=== PATIENT | male | born 1965 | race Caucasian/White ===

== ENCOUNTER 2020-11-23 21:40 | Emergency (ER) | payer OTHER ==
[2020-11-23 21:45] VITALS: BP 152/74
--- NOTE | 2020-11-23 22:09 | ED General ---
General Chief Complaint: General Problems/Pain Stated Complaint: LETHARGY Nursing Triage Note: Patient states that he came to the ER because his made him. He states that his has noticed that he has dropped things frequently and that he reaches for things and is unable to grab them. Patient states that he feels completely fine and normal. Nursing Sepsis Screen: No Definite Risk Source of Information: Patient Exam Limitations: No Limitations History of Present Illness Date Seen by Provider: Nov 23, 2020 Time Seen by Provider: 21:45 Initial Comments 55-year-old male presents to the ER stating "my made me come in, I feel fine". Patient admits her concern is that occasionally he drops things or reaches for something and misses it. Is occasionally tried to set something down and missed the table or counter with the item. This does not occur daily, is not occurring currently. He admits it has happened more in the last 2 weeks, although not persistently or consistently. Denies any difficulty with walking, although occasionally he is off balance when he bends over and stands up. He admits to increased stress at work over the past couple weeks. He does have a history of sleep apnea and he does not use his CPAP machine because he does not like how it feels on his face. Admits to sleeping poorly and having excessive snoring and waking himself up often. He also admits feeling tired throughout most days. He denies any drug or alcohol use, abuse or addiction. He denies chest pain, shortness of air, weight loss, syncope, recent illness fever or chills. Otherwise states he feels just fine. Allergies and Home Medications Allergies Coded Allergies: No Known Drug Allergies (Unverified , 11/23/20) Patient Home Medication List Home Medication List Reviewed: Yes Review of Systems Review of Systems Constitutional: see HPI; No fever, No malaise, No weakness Respiratory: no symptoms reported; No cough, No short of breath Cardiovascular: no symptoms reported; No chest pain, No edema, No palpitations, No syncope Gastrointestinal: No abdominal pain, No loss of appetite, No nausea, No vomiting Musculoskeletal: No back pain, No joint pain, No muscle pain, No muscle stiffness, No muscle weakness, No neck pain Skin: No change in color, No lesions, No rash Psychiatric/Neurological: See HPI; Denies Anxiety, Denies Depressed, Denies Emotional Problems, Denies Headache, Denies Numbness, Denies Paresthesia, Denies Pre-Existing Deficit, Denies Seizure, Denies Tingling, Denies Tremors, Denies Weakness; Other (occasional incoordination, not currently. comes and goes) Past Wtaxncs-Jkwqmy-Erqlhp Hx Past Med/Social Hx: Reviewed Nursing Past Med/Soc Hx Patient Social History Alcohol Use: Denies Use Smoking Status: Current Everyday Smoker Type Used: Cigarettes Recent Infectious Disease Expo: No Past Medical History Surgeries: No Respiratory: No Cardiac: Yes Deep Vein Thrombosis Neurological: No Genitourinary: No Gastrointestinal: No Musculoskeletal: No Endocrine: No HEENT: No Cancer: No Psychosocial: No Integumentary: No Physical Exam Vital Signs Vital Signs - First Documented 11/23/20 21:45 Temp 36.8 Pulse 84 Resp 18 B/P (MAP) 152/74 (100) Pulse Ox 98 O2 Delivery Room Air Capillary Refill : Less Than 3 Seconds Height, Weight, BMI Height: '" Weight: lbs. oz. 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; No Abnormal Cerebellar Tests, No Abnormal Gait, No Aphasia, No Depressed Affect, No Disoriented, No EOM Palsy, No Facial Droop, No Motor Weakness, No Sensory Deficit Skin: Normal Color, Warm/Dry Progress/Results/Core Measures Suspected Sepsis Recent Fever Within 48 Hours: No Infection Criteria Present: None New/Unexplained Altered Menta: No Sepsis Screen: No Definite Risk SIRS Temperature: Pulse: 84 Respiratory Rate: 18 Blood Pressure 152 /74 Mean: 100 Results/Orders Vital Signs/I&O 11/23/20 21:45 Temp 36.8 Pulse 84 Resp 18 B/P (MAP) 152/74 (100) Pulse Ox 98 O2 Delivery Room Air Capillary Refill : Less Than 3 Seconds Blood Pressure Mean: 100 Progress Note : Progress Note Patient with rather benign complaint and presentation stating he feels fine. Normal neurologic exam without any deficit or abnormal movement or coordination. Long discussion over possible etiology of the symptoms and discovered a few items that may be contributing to his occasional abnormal movement or depth perception. Patient does admit to sleep apnea, getting poor sleep for several years and not using his CPAP due to a poor fitting mask that he does not tolerate. Also admits to increased stress at work at a place where has been working for 18 years. Also admits there are days where he does not eat all day and he could have low blood sugar as well. Encourage patient to see his primary care provider to discuss reevaluation for sleep apnea and with focus of getting a better fitting mask. Discussed the benefit of sleep and the risk of continued likely hypoxia at night without his CPAP which would affect his daytime performance and this might be a bit possible etiology of his condition currently. He agrees and understood. Also advised not fasting throughout days that he is working as a low blood sugar could also cause abnormal movement, coordination, or seizure-like activity if significantly low. Patient also agrees and understands this. Strongly encouraged follow-up with his primary care provider for complete physical and to discuss these matters. Departure Impression Primary Impression: Fatigue Qualified Codes: R53.83 - Other fatigue Additional Impression: Sleep apnea in adult Disposition: 01 HOME, SELF-CARE Condition: Stable Departure-Patient Inst. Decision time for Depature: 22:06 Referrals: NO,LOCAL PHYSICIAN (PCP/Family) Primary Care Physician Patient Instructions: Obstructive Sleep Apnea, Adult (DC) Add. Discharge Instructions: Follow up with Dr Calderón in 1 week for a complete physical and to discuss options for a re-evaluation for a better mask for your CPAP. Understand that the following may make you have some coordination abnormalities: fatigue from lack of sleep, stress, low blood sugar. Return to the ER if your symptoms get worse and you are unable to see Dr Calderón. All discharge instructions reviewed with patient and/or family. Voiced understanding. ADRIANO TABOR DO Nov 23, 2020 22:09
== END 2020-11-23 22:11 | disposition home or self-care (01) ==
LOC: EDUNIT# 21:40 → ER FS 21:45
DX: R53.83 Other fatigue (principal); G47.33 Obstructive sleep apnea (adult) (pediatric); I10 Essential (primary) hypertension; F17.210 Nicotine dependence, cigarettes, uncomplicated
CPT/HCPCS: 99281

== ENCOUNTER 2020-11-24 10:41 | Inpatient (IN) | payer OTHER ==
[~2020-11-24] VITALS: Ht 195.5 cm; Wt 134.5 kg
[2020-11-24] VITALS (11 sets, daily range): BP systolic 102–130; BP diastolic 53–98
--- NOTE | 2020-11-24 11:01 | ED Neurological Problem ---
General Chief Complaint: Neurological Problems Stated Complaint: L SIDE WEAKNESS Source: patient, family Exam Limitations: no limitations History of Present Illness Date Seen by Provider: Nov 24, 2020 Time Seen by Provider: 10:45 Initial Comments Patient is a 55-year-old male who presents to the emergency department today with a chief complaint of left upper extremity and left lower extremity weakness. His is present at the bedside and provides further history. She states he had onset of symptoms last night around 8 PM. She states he kept dropping things from his left hand and has had some coordination and balance issues over the course of the last 12 hours. She states he had a little bit of slurred speech. She states he just was not acting like himself. He went to the emergency department at [facility] last night and was seen did not have a CAT scan at that visit. They told him that he was having issues with sleep apnea. states that he went home and this morning went to the ground secondary to leg weakness and was not able to get himself back up on under his own power. He denies any recent illnesses such as fevers, chills, cough or congestion. No nausea vomiting or diarrhea. No vision changes that he is aware of. He denies headache. No issues with continence. Patient does not have any significant past medical history. He is a smoker smokes slightly less than a pack a day. All other review of systems reviewed and negative except as stated above. Timing/Duration: other (12 hours) Severity: moderate Associated Symptoms: No confusion, No loss of consciousness, No nausea/vomiting, No paresthesia; slurred speech, trouble walking, weakness (Left upper extremity left lower extremity) Allergies and Home Medications Allergies Coded Allergies: No Known Drug Allergies (Unverified , 11/23/20) Patient Home Medication List Home Medication List Reviewed: Yes Review of Systems Review of Systems Constitutional: see HPI Eyes: No Symptoms Reported Ears, Nose, Mouth, Throat: no symptoms reported Respiratory: no symptoms reported Cardiovascular: no symptoms reported Gastrointestinal: no symptoms reported Genitourinary: no symptoms reported Musculoskeletal: no symptoms reported Skin: no symptoms reported Psychiatric/Neurological: Weakness (Left upper and lower extremity, trace) Past Djqzdam-Dqwofy-Vfmxcq Hx Patient Social History Alcohol Use: Denies Use Type Used: Cigarettes Past Medical History Surgeries: Yes (RIGHT 2ND FINGER) Orthopedic Respiratory: No Cardiac: Yes Deep Vein Thrombosis Neurological: No Genitourinary: No Gastrointestinal: No Musculoskeletal: No Endocrine: No HEENT: No Cancer: No Psychosocial: No Integumentary: No Physical Exam Vital Signs Vital Signs - First Documented 11/24/20 10:41 Temp 36.3 Pulse 92 Resp 18 B/P (MAP) 131/75 (93) Pulse Ox 98 Capillary Refill : Height, Weight, BMI Height: '" Weight: lbs. oz. kg; BMI Method: General Appearance: WD/WN, no apparent distress HEENT: PERRL/EOMI, normal ENT inspection Neck: full range of motion Respiratory: lungs clear, normal breath sounds, no respiratory distress, no accessory muscle use Cardiovascular: regular rate, rhythm Gastrointestinal: non tender, soft Extremities: normal range of motion, non-tender, normal inspection, no pedal edema Neurologic/Psychiatric: alert, normal mood/affect, oriented x 3 Crainal Nerves: normal hearing, normal speech, PERRL; No abnormal eye position, No abnormal gag reflex, No abnormal pupil position; facial droop (Left-sided); No tongue deviation to R, No tongue deviation to L Coordination/Gait: normal finger to nose, abnormal gait (Gait not tested) Motor/Sensory: pronator drift (L), weak motor strength LUE (4+/5), weak motor strength LLE (4+/5) Skin: normal color, warm/dry Stroke Onset of Symptoms Date of Onset of Symptoms: Nov 23, 2020 Time of Symptom Onset: 20:00 Onset of Symptoms: Yes NIH Stroke Scale Assessment Select: Initial Level of Consciousness: 0=Alert (0), Level of Consciousness- Questions: 0=Answers both month/age (0), LOC Commands: 0=Performs both tasks (0), Gaze: Normal (0), Visual Mcclellan: 1=Partial hemianopia (1), Facial Movement (Facial Paresis): 1=Minor paralysis (1), Motor Function-Arms Right: 0=No drift (0), Motor Function-Arms Left: 1=Drift (1), Motor Function-Legs Right: 0=No drift (0), Motor Function-Legs Left: 1=Drift (1), Limb Ataxia: 0=Absent (0), Sensory: 0=Normal:no loss (0), Best Language: 0=No aphasia (0), Dysarthria: 0=Normal (0), Extinction & Inattention: 1=Visual,tactile,auditory (1), Total: 5 Stroke Thrombolytic Exclusion Age 18 or Over: Yes Acute intenal hemorrhage: No History of CVA: No Uncontrolled Coagulation Defec: No Intracranial Hemorrhage: No Severe Hypertension: No GI or Bleed: No Subarachnoid Hemorrhage: No Intracranial Neoplasm/Aneurysm: No Oral Anticoagulants: No Surgery or Trauma: No Puncture of Non-Compressible V: No Recent CPR: No Diabetic Hemorrhagic Retinopat: No Organ Biopsy: No Recent Obstetric Delivery: No Glucose: Yes Significant Hepatic Dysfunctio: No NIH Stoke Scale >22: No Bacterial Endocarditis: No Pericarditis: No Improving Symptoms: No Platelets: No TPA Contraindication: Yes IV - TPa Received IV - TPa Procedure Performed?: No Progress/Results/Core Measures Results/Orders Lab Results Laboratory Tests Test 11/24/20 10:45 11/24/20 10:49 Range/Units White Blood Count 10.3 4.3-11.0 10^3/uL Red Blood Count 5.62 H 4.30-5.52 10^6/uL Hemoglobin 16.3 13.3-17.7 g/dL Hematocrit 49 40-54 % Mean Corpuscular Volume 86 80-99 fL Mean Corpuscular Hemoglobin 29 25-34 pg Mean Corpuscular Hemoglobin Concent 34 32-36 g/dL Red Cell Distribution Width 13.2 10.0-14.5 % Platelet Count 239 130-400 10^3/uL Mean Platelet Volume 10.2 9.0-12.2 fL Immature Granulocyte % (Auto) 1 % Neutrophils (%) (Auto) 69 42-75 % Lymphocytes (%) (Auto) 22 12-44 % Monocytes (%) (Auto) 8 0-12 % Eosinophils (%) (Auto) 1 0-10 % Basophils (%) (Auto) 0 0-10 % Neutrophils # (Auto) 7.1 1.8-7.8 10^3/uL Lymphocytes # (Auto) 2.2 1.0-4.0 10^3/uL Monocytes # (Auto) 0.8 0.0-1.0 10^3/uL Eosinophils # (Auto) 0.1 0.0-0.3 10^3/uL Basophils # (Auto) 0.0 0.0-0.1 10^3/uL Immature Granulocyte # (Auto) 0.1 0.0-0.1 10^3/uL Prothrombin Time 12.7 12.2-14.7 SEC INR Comment 0.9 0.8-1.4 Activated Partial Thromboplast Time 31 24-35 SEC Sodium Level 131 L 135-145 MMOL/L Potassium Level 3.8 3.6-5.0 MMOL/L Chloride Level 101 98-107 MMOL/L Carbon Dioxide Level 19 L 21-32 MMOL/L Anion Gap 11 5-14 MMOL/L Blood Urea Nitrogen 6 L 7-18 MG/DL Creatinine 0.85 0.60-1.30 MG/DL Estimat Glomerular Filtration Rate > 60 BUN/Creatinine Ratio 7 Glucose Level 414 *H 70-105 MG/DL Calcium Level 8.4 L 8.5-10.1 MG/DL Triglycerides Level 192 H <150 MG/DL Cholesterol Level 225 H < 200 MG/DL LDL Cholesterol Direct 179 H 1-129 MG/DL VLDL Cholesterol 38 5-40 MG/DL HDL Cholesterol 35 L 40-60 MG/DL Glucometer 358 H 70-110 MG/DL My Orders Orders - NAVARRO MATTA MD Ed Iv/Invasive Line Start (11/24/20 10:57) Cbc With Automated Diff (11/24/20 10:57) Basic Metabolic Panel (11/24/20 10:57) Ekg Tracing (11/24/20 10:57) Chest 1 View, Ap/Pa Only (11/24/20 10:57) Ct Head Wo (11/24/20 10:57) Protime With Inr (11/24/20 10:57) Partial Thromboplastin Time (11/24/20 10:57) Aspirin Tablet (Aspirin Tablet) (11/24/20 11:45) Ct Angio Head/Neck (11/24/20 11:33) Iohexol Injection (Omnipaque 350 Mg/Ml 1 (11/24/20 11:45) Received Contrast (Hold Metformin- Contr (11/24/20 11:45) Ns (Ivpb) (Sodium Chloride 0.9% Ivpb Bag (11/24/20 11:45) Sodium Chloride Flush (Catheter Flush Sy (11/24/20 11:45) Medications Given in ED Vital Signs/I&O 11/24/20 10:41 Temp 36.3 Pulse 92 Resp 18 B/P (MAP) 131/75 (93) Pulse Ox 98 Progress Progress Note : Time: 11:31 Progress Note Case discussed with [facility] stroke neurologist, Dr. Castillo. No candidate at this time for TPA or other intervention. He did recommend CTA of the head and neck and full-strength aspirin at this time. Initial ECG Impression Date: Nov 24, 2020 Initial ECG Impression Time: 10:52 Initial ECG Rate: 83 Initial ECG Rhythm: Normal Sinus Initial ECG Intervals: Normal Initial ECG Impression: Normal Initial ECG Comparisson: No Previous ECG Available Diagnostic Imaging Diagonstic Imaging: CT Plain Films/CT/US/NM/MRI: head Comments [facility], [place] NAME: JENS [facility] REC#: [id number] PT STATUS: REG ER : 1965 PHYSICIAN: NAVARRO MATTA MD ADMIT DATE: 11/24/20/ER Draft Date of Exam:11/24/20 CT HEAD WO Clinical indications: Patient with left-sided weakness, coordination problems since last night. Rule out stroke. Exam: Axial CT scan of the brain without IV contrast with coronal and sagittal reformatted images. Auto Exposure Controls were utilized during the CT exam to meet ALARA standards for radiation dose reduction. Comparison: None. Findings: There is questionable subtle minimal amount of low density involving the high right parietal lobe region near the vertex which appears to extend transcortical. This is of unknown age. There are other small areas of low-attenuation white matter changes involving the subcortical right frontal lobe and right parietal lobe regions. There is no large vascular territory cerebral infarct. There is no intracranial hemorrhage, brain herniation or midline shift. There is no dense vessel sign. There is no hydrocephalus. Basal cisterns are unremarkable. The extracranial soft tissues, skull, and orbits are unremarkable. There is minimal mucosal thickening involving the ethmoid sinus and maxillary sinus and mild amount involving the frontal sinus. Mastoid air cells are clear. IMPRESSION: 1: There are subtle low-attenuation areas involving the high right parietal lobe region which appears to extend transcortically. There are also smaller low-attenuation areas involving the subcortical right parietal lobe and right frontal lobe. These areas are of unknown age, but are concerning for small ischemic processes. MRI of the brain with and without contrast would better evaluate. 2: Otherwise the remainder of the brain parenchyma is unremarkable. 3: Mild paranasal sinus disease. Results of this report discussed with Dr. Karol Matta via the telephone on 11/24/2020 at 1120 hours. Dictated on workstation # [id number] Dict: 11/24/20 1115 Trans: 11/24/20 1130 CVB [id number] Interpreted by: SHANIQUE KANG MD Electronically signed by: Time of Consult: 12:18 Reviewed: Discussed w/Radiologist CT Read Date: Nov 24, 2020 Counseling-Symptomatic: 3-10 Minutes Follow-up with PCP to: Discuss Further Options CVA/SNYCOPE: ECG, Tpa Considered Departure Communication (Admissions) Time/Spoke to Admitting Phy: 12:[address] Márquez who accepts the patient for admission Impression Primary Impression: Stroke Qualified Codes: I63.39 - Cerebral infarction due to thrombosis of other cerebral artery Additional Impression: Hyperglycemia due to diabetes mellitus Disposition: ADMITTED INPATIENT Condition: Stable Admissions Decision to Admit Reason: Admit from ER (General) Decision to Admit/Date: Nov 24, 2020 Time/Decision to Admit Time: 12:20 Departure-Patient Inst. Referrals: NO,LOCAL PHYSICIAN (PCP/Family) Primary Care Physician NAVARRO MATTA MD Nov 24, 2020 11:01
[2020-11-24 11:05] LABS: BASOPHILS % (AUTO) 0 % (0-10); EOSINOPHILS # (AUTO) 0.1 10^3/uL (0.0-0.3); EOSINOPHILS % (AUTO) 1 % (0-10); HEMATOCRIT 49 % (40-54); HEMOGLOBIN 16.3 g/dL (13.3-17.7); LYMPHOCYTES # (AUTO) 2.2 10^3/uL (1.0-4.0); LYMPHOCYTES % (AUTO) 22 % (12-44); MEAN CORPUSCULAR HEMOGLOBIN 29 pg (25-34); MEAN CORPUSCULAR HGB CONC 34 g/dL (32-36); MEAN CORPUSCULAR VOLUME 86 fL (80-99); MEAN PLATELET VOLUME 10.2 fL (9.0-12.2); MONOCYTES # (AUTO) 0.8 10^3/uL (0.0-1.0); MONOCYTES % (AUTO) 8 % (0-12); NEUTROPHILS # (AUTO) 7.1 10^3/uL (1.8-7.8); NEUTROPHILS % (AUTO) 69 % (42-75); PLATELET COUNT 239 10^3/uL (130-400); WHITE BLOOD COUNT 10.3 10^3/uL (4.3-11.0)
[2020-11-24 11:16] LABS: CHLORIDE 101 MMOL/L (98-107); INR 0.9 (0.8-1.4); POTASSIUM 3.8 MMOL/L (3.6-5.0); PROTHROMBIN TIME PATIENT 12.7 SEC (12.2-14.7); SODIUM 131 MMOL/L (135-145)
[2020-11-24 11:17] LABS: CALCIUM 8.4 MG/DL (8.5-10.1)
[2020-11-24 11:19] LABS: CARBON DIOXIDE 19 MMOL/L (21-32)
--- NOTE | 2020-11-24 11:20 | Diagnostic Imaging Report ---
INDICATION: Left-sided weakness, stroke evaluation. Symptoms since last night. FINDINGS: Frontal view of the chest demonstrates lungs to be clear. Heart, mediastinum and pulmonary vascularity and visualized bony thorax normal. IMPRESSION: Normal chest. Dictated by: Dictated on workstation # [id number]
[2020-11-24 11:21] LABS: CREATININE SERUM 0.85 MG/DL (0.60-1.30); GFR ESTIMATED > 60
[2020-11-24 11:22] LABS: BUN/CREATININE RATIO 7
[2020-11-24 11:24] LABS: GLUCOSE 414 MG/DL (70-105)
--- NOTE | 2020-11-24 11:30 | Diagnostic Imaging Report ---
Clinical indications: Patient with left-sided weakness, coordination problems since last night. Rule out stroke. Exam: Axial CT scan of the brain without IV contrast with coronal and sagittal reformatted images. Auto Exposure Controls were utilized during the CT exam to meet ALARA standards for radiation dose reduction. Comparison: None. Findings: There is questionable subtle minimal amount of low density involving the high right parietal lobe region near the vertex which appears to extend transcortical. This is of unknown age. There are other small areas of low-attenuation white matter changes involving the subcortical right frontal lobe and right parietal lobe regions. There is no large vascular territory cerebral infarct. There is no intracranial hemorrhage, brain herniation or midline shift. There is no dense vessel sign. There is no hydrocephalus. Basal cisterns are unremarkable. The extracranial soft tissues, skull, and orbits are unremarkable. There is minimal mucosal thickening involving the ethmoid sinus and maxillary sinus and mild amount involving the frontal sinus. Mastoid air cells are clear. IMPRESSION: 1: There are subtle low-attenuation areas involving the high right parietal lobe region which appears to extend transcortically. There are also smaller low-attenuation areas involving the subcortical right parietal lobe and right frontal lobe. These areas are of unknown age, but are concerning for small ischemic processes. MRI of the brain with and without contrast would better evaluate. 2: Otherwise the remainder of the brain parenchyma is unremarkable. 3: Mild paranasal sinus disease. Results of this report discussed with Dr. Karol Lentz via the telephone on 11/24/2020 at 1120 hours. Dictated by: Dictated on workstation # [id number]
[2020-11-24] MEDS ORDERED: IOHEXOL 350 MG/ML 100 ML (OMNIPAQUE 350) VIAL IV ONE (11:45)
[2020-11-24] MEDS ORDERED: ASPIRIN 325 MG (5 GR) TABLET PO ONE (11:45)
[2020-11-24] MEDS ORDERED: HOLD METFORMIN - RECEIVED CONTRAST 20 ML VIAL IV SCH (11:45)
[2020-11-24] MEDS ORDERED: NS 100 ML (IVPB) BAG IV ONE (11:45)
[2020-11-24] MEDS ORDERED: CATHETER FLUSH 10 ML SYR IV PRN ×2 (11:45→13:45)
--- NOTE | 2020-11-24 12:22 | Diagnostic Imaging Report ---
Clinical indication: Patient with right-sided stroke and left-sided weakness. Coordination problems since last night. Exams: 1: Head CT with IV contrast. Auto Exposure Controls were utilized during the CT exam to meet ALARA standards for radiation dose reduction. 2: CT angiogram of the head and neck performed with 100 cc of Omnipaque 350 IV contrast. Sagittal and coronal MIP reformations were created for better visualization of vascular anatomy. Auto Exposure Controls were utilized during the CT exam to meet ALARA standards for radiation dose reduction. Comparison: Head CT without contrast dated 11/24/2020. Findings: Head CT: There is stable subtle patchy low attenuation subcortical and cortical areas involving the high right parietal lobe and right frontal lobe region which are of unknown age. There is no abnormal IV contrast enhancement. There is no brain herniation or midline shift. There is no other areas of low density concerning for infarcts seen on this exam. The appearance of the brain is stable. There is no hydrocephalus. Basal cisterns are unremarkable. The remainder of this exam shows no significant interval change compared to the prior study of comparison. CT Angiogram: There is dense contrast bolus seen within left subclavian vein and innominate vein. There is common origin of the brachiocephalic artery and left common carotid consistent with bovine arch. The bilateral subclavian arteries, brachiocephalic artery, bilateral common carotid arteries, bilateral cervical ICA, and bilateral ECA are patent. There is mild vascular irregularity involving the mid left CCA and right ICA bulb from atherosclerotic disease. The bilateral petrous, cavernous and supraclinoid ICAs show no significant stenosis. The bilateral ACAs and their distal branches and bilateral MCAs and their distal branches are patent. The bilateral cervical vertebral arteries are patent. Dominant right cervical vertebral artery is seen. There is mild vascular narrowing of the intradural left vertebral artery. The PICA are patent bilaterally. The intradural bilateral vertebral arteries, basilar artery, bilateral superior cerebellar arteries, and bilateral TUBER MACHINE OPERATOR HELPER are patent. Dural venous sinuses patent. The neck soft tissue structures show no significant abnormality. Visualized upper lung estrada are clear. There is cervical spine degenerative spurs most pronounced at the C6-C7 level. There is diffuse disk bulge and hypertrophic spurs at the C6-C7 level and moderate loss of disk space height. There is severe left C6-C7 neural foramen narrowing. IMPRESSION: 1: Stable CT scan the brain with small patchy areas of low-attenuation involving the right parietal and right frontal lobe regions of unknown age. These are concerning for areas of ischemia. Given patient's symptoms, acute infarct changes may be considered. There is no evidence of intracranial hemorrhage or abnormal IV contrast enhancement. 2: CT angiogram of the head and neck shows no large vessel occlusion, aneurysm, or dissection. Results of this report was discussed with Dr. Albina Lentz via the telephone on 11/24/2020 at 1214 hours. Dictated by: Dictated on workstation # [id number]
--- NOTE | 2020-11-24 13:35 | History & Physical-Hospitalist ---
History of Present Illness HPI/Chief Complaint Pt is a 55yoCM with no known past medical history who presented to the ER due to left sided weakness. He defers to his to tell his HPI. He has not seen a doctor for years and his forced him to come today. He developed left sided weakness and was very uncoordinated last night at 8pm. His had him get evaluated in the ER last night as well. His thought it may be his blood sugar and gave him a candy bar. He continued to worsen overnight and was unable to put his own pants on or even walk so brought him back to the ER. 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 His also was not able to aim when urinating and missing the toilet. CT head was done and showed no acute infarct. [facility] stroke neurology was consulted and recommended against TPA due to being outside the window. He had a CTA done as well and this was negative for large vessel occlusion. He is being admitted for further work up and PT/OT. He is somewhat sleepy during exam but st ates he normally works nights and this is his middle of the night. Source: patient Date Seen 11/24/20 Time Seen by a Provider: 13:29 Attending Physician Evan Márquez MD PCP No,Local Physician Referring Physician Date of Admission Nov 24, 2020 at 12:11 Home Medications & Allergies Home Medications Reviewed patient Home Medication Reconciliation performed by pharmacy medication reconciliations elevator technician and/or nursing. Patients Allergies have been reviewed. Allergies Allergies Coded Allergies No Known Drug Allergies (Unverified11/23/20) Past Gjihxew-Sqdhtg-Oglpnp Hx Past Med/Social Hx: Reviewed Nursing Past Med/Soc Hx Patient Social History Marrital Status: Employed/Student: employed Alcohol Use: Denies Use Recreational Drug Use: No Smoking Status: Current Everyday Smoker Cigaretts per day: 20 Type Used: Cigarettes Recent Foreign Travel: No Contact w/other who traveled: No Recent Infectious Disease Expo: No Social History Requests to be a full code at this time. is decision maker if unable to communicate- 11/24/20 Past Medical History Surgeries: Orthopedic Cardiac: Deep Vein Thrombosis Review of Systems Constitutional: No chills, No fever EENTM: no symptoms reported Respiratory: No cough, No short of breath Cardiovascular: No chest pain, No edema, No Hx of Intervention, No palpitatio ns, No syncope Gastrointestinal: No abdominal pain, No constipation, No diarrhea; loss of appetite ( states he goes days without eating at times); No nausea, No vomiting Genitourinary: No discharge, No dysuria Musculoskeletal: see HPI Skin: no symptoms reported Psychiatric/Neurological: See HPI; Denies Numbness, Denies Paresthesia Physical Exam Physical Exam Vital Signs Vital Signs - First Documented 11/24/20 10:41 Temp 36.3 Pulse 92 Resp 18 B/P (MAP) 131/75 (93) Pulse Ox 98 Capillary Refill : Less Than 3 Seconds Height, Weight, BMI Height: '" Weight: lbs. oz. 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 Imaging: Reviewed Imaging Report Imaging [facility], [place] NAME: [facility] REC#: [id number] PT STATUS: REG ER : 1965 PHYSICIAN: NAVARRO MATTA MD ADMIT DATE: 11/24/20/ER Draft Date of Exam:11/24/20 CT HEAD WO Clinical indications: Patient with left-sided weakness, coordination problems since last night. Rule out stroke. Exam: Axial CT scan of the brain without IV contrast with coronal and sagittal reformatted images. Auto Exposure Controls were utilized during the CT exam to meet ALARA standards for radiation dose reduction. Comparison: None. Findings: There is questionable subtle minimal amount of low density involving the high right parietal lobe region near the vertex which appears to extend transcortical. This is of unknown age. There are other small areas of low-attenuation white matter changes involving the subcortical right frontal lobe and right parietal lobe regions. There is no large vascular territory cerebral infarct. There is no intracranial hemorrhage, brain herniation or midline shift. There is no dense vessel sign. There is no hydrocephalus. Basal cisterns are unremarkable. The extracranial soft tissues, skull, and orbits are unremarkable. There is minimal mucosal thickening involving the ethmoid sinus and maxillary sinus and mild amount involving the frontal sinus. Mastoid air cells are clear. IMPRESSION: 1: There are subtle low-attenuation areas involving the high right parietal lobe region which appears to extend transcortically. There are also smaller low-attenuation areas involving the subcortical right parietal lobe and right frontal lobe. These areas are of unknown age, but are concerning for small ischemic processes. MRI of the brain with and without contrast would better evaluate. 2: Otherwise the remainder of the brain parenchyma is unremarkable. 3: Mild paranasal sinus disease. Results of this report discussed with Dr. Karol Matta via the telephone on 11/24/2020 at 1120 hours. Dictated on workstation # [id number] Dict: 11/24/20 1115 Trans: 11/24/20 1130 [facility] [id number] Interpreted by: SHANIQUE KANG MD Electronically signed by: [facility], [place] NAME: [facility]ENS [facility] REC#: [id number] PT STATUS: REG ER : 1965 PHYSICIAN: NAVARRO MATTA MD ADMIT DATE: 11/24/20/ER Draft Date of Exam:11/24/20 CT ANGIO HEAD/NECK Clinical indication: Patient with right-sided stroke and left-sided weakness. Coordination problems since last night. Exams: 1: Head CT with IV contrast. Auto Exposure Controls were utilized during the CT exam to meet ALARA standards for radiation dose reduction. 2: CT angiogram of the head and neck performed with 100 cc of Omnipaque 350 IV contrast. Sagittal and coronal MIP reformations were created for better visualization of vascular anatomy. Auto Exposure Controls were utilized during the CT exam to meet ALARA standards for radiation dose reduction. Comparison: Head CT without contrast dated 11/24/2020. Findings: Head CT: There is stable subtle patchy low attenuation subcortical and cortical areas involving the high right parietal lobe and right frontal lobe region which are of unknown age. There is no abnormal IV contrast enhancement. There is no brain herniation or midline shift. There is no other areas of low density concerning for infarcts seen on this exam. The appearance of the brain is stable. There is no hydrocephalus. Basal cisterns are unremarkable. The remainder of this exam shows no significant interval change compared to the prior study of comparison. CT Angiogram: There is dense contrast bolus seen within left subclavian vein and innominate vein. There is common origin of the brachiocephalic artery and left common carotid consistent with bovine arch. The bilateral subclavian arteries, brachiocephalic artery, bilateral common carotid arteries, bilateral cervical ICA, and bilateral ECA are patent. There is mild vascular irregularity involving the mid left CCA and right ICA bulb from atherosclerotic disease. The bilateral petrous, cavernous and supraclinoid ICAs show no significant stenosis. The bilateral ACAs and their distal branches and bilateral MCAs and their distal branches are patent. The bilateral cervical vertebral arteries are patent. Dominant right cervical vertebral artery is seen. There is mild vascular narrowing of the intradural left vertebral artery. The PICA are patent bilaterally. The intradural bilateral vertebral arteries, basilar artery, bilateral superior cerebellar arteries, and bilateral SIGN CARPENTER are patent. Dural venous sinuses patent. The neck soft tissue structures show no significant abnormality. Visualized upper lung estrada are clear. There is cervical spine degenerative spurs most pronounced at the C6-C7 level. There is diffuse disk bulge and hypertrophic spurs at the C6-C7 level and moderate loss of disk space height. There is severe left C6-C7 neural foramen narrowing. IMPRESSION: 1: Stable CT scan the brain with small patchy areas of low-attenuation involving the right parietal and right frontal lobe regions of unknown age. These are concerning for areas of ischemia. Given patient's symptoms, acute infarct changes may be considered. There is no evidence of intracranial hemorrhage or abnormal IV contrast enhancement. 2: CT angiogram of the head and neck shows no large vessel occlusion, aneurysm, or dissection. Results of this report was discussed with Dr. Navarro Matta via the telephone on 11/24/2020 at 1214 hours. 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 Newly diagnosed DMII BS 414 on arrival SSI Check a1c Will likely need insulin at discharge Tobacco abuse Recommended cessation, patient unsure of how he will quit but interested DVT ppx: Lovenox Diagnosis/Problems Diagnosis/Problems (1) Stroke Status: Acute Qualifiers: CVA mechanism: thrombosis Precerebral and cerebral artery: unspecified cerebral artery Qualified Codes: I63.30 - Cerebral infarction due to thrombosis of unspecified cerebral artery (2) Hyperglycemia due to diabetes mellitus Status: Acute (3) Tobacco abuse Status: Chronic Clinical Quality Measures Stroke: Date of last known well: Nov 23, 2020 Time of last known well: 20:00 Smoking Cessation Counseling: Counseling-Symptomatic: 3-10 Minutes EVAN MÁRQUEZ MD Nov 24, 2020 13:35
[2020-11-24 13:43] LABS: CHOLESTEROL 225 MG/DL (< 200); HDL CHOLESTEROL 35 MG/DL (40-60); TRIGLYCERIDES 192 MG/DL (<150); VLDL CHOLESTEROL 38 MG/DL (5-40)
[2020-11-24] MEDS: CATHETER FLUSH 10 ML SYR IV SCH (14:30)
[2020-11-24] MEDS ORDERED: ANTACID SUSP 30 ML UDC (MYLANTA) PO PRN (14:45)
[2020-11-24] MEDS ORDERED: ACETAMINOPHEN 325 MG TABLET PO PRN (14:45)
[2020-11-24] MEDS ORDERED: MELATONIN 3 MG TABLET PO PRN (14:45)
[2020-11-24] MEDS ORDERED: ONDANSETRON 4 MG/2 ML (SDV) Z0FRAN IV PRN (14:45)
[2020-11-24] MEDS ORDERED: MILK OF MAGNESIA 400 MG/5 ML 30 ML UDC PO PRN (14:45)
[2020-11-24] MEDS ORDERED: BENZONATATE 100 MG (TESSALON) CAPSULE PO PRN (14:45)
[2020-11-24] MEDS ORDERED: inSUlin ASPART (NovoLOG) 1 UNIT/0.01 ML (CHARGE PER UNIT) SC SCH (16:00)
[2020-11-24] MEDS: inSUlin ASPART (NovoLOG) 1 UNIT/0.01 ML (CHARGE PER UNIT) SC SCH ×2 (16:57→20:42)
[2020-11-25] MEDS: CATHETER FLUSH 10 ML SYR IV SCH ×4 (00:59→21:06)
[2020-11-25 02:58] LABS: BASOPHILS % (AUTO) 0 % (0-10); EOSINOPHILS # (AUTO) 0.1 10^3/uL (0.0-0.3); EOSINOPHILS % (AUTO) 1 % (0-10); HEMATOCRIT 50 % (40-54); HEMOGLOBIN 16.3 g/dL (13.3-17.7); LYMPHOCYTES # (AUTO) 2.6 10^3/uL (1.0-4.0); LYMPHOCYTES % (AUTO) 28 % (12-44); MEAN CORPUSCULAR HEMOGLOBIN 29 pg (25-34); MEAN CORPUSCULAR HGB CONC 33 g/dL (32-36); MEAN CORPUSCULAR VOLUME 88 fL (80-99); MONOCYTES # (AUTO) 0.7 10^3/uL (0.0-1.0); MONOCYTES % (AUTO) 8 % (0-12); NEUTROPHILS # (AUTO) 5.7 10^3/uL (1.8-7.8); NEUTROPHILS % (AUTO) 62 % (42-75); PLATELET COUNT 228 10^3/uL (130-400); WHITE BLOOD COUNT 9.2 10^3/uL (4.3-11.0)
[2020-11-25 03:13] LABS: CHLORIDE 104 MMOL/L (98-107); POTASSIUM 4.1 MMOL/L (3.6-5.0); SODIUM 135 MMOL/L (135-145)
[2020-11-25 03:14] LABS: CALCIUM 8.6 MG/DL (8.5-10.1)
[2020-11-25 03:15] LABS: GLUCOSE 237 MG/DL (70-105)
[2020-11-25 03:16] LABS: CARBON DIOXIDE 21 MMOL/L (21-32)
[2020-11-25 03:18] LABS: PHOSPHORUS 2.8 MG/DL (2.3-4.7)
[2020-11-25 03:19] LABS: BUN/CREATININE RATIO 13; CREATININE SERUM 0.77 MG/DL (0.60-1.30); GFR ESTIMATED > 60
--- NOTE | 2020-11-25 04:40 | Pulmonary Consultation ---
History of Present Illness History of Present Illness Date Seen by Provider: Nov 25, 2020 Time Seen by Provider: 04:35 Date of Admission Allergies and Home Medications Allergies Coded Allergies: No Known Drug Allergies (Unverified , 11/23/20) Home Medications Ibuprofen 200 Mg Tablet, 600 MG PO Q6H PRN for PAIN-MILD (1-4), (Reported) TAKES 3 (200MG) TABLETS Past Exrnvbl-Vpauft-Qcmruu Hx Past Med/Social Hx: Reviewed Nursing Past Med/Soc Hx Patient Social History Alcohol Use: Denies Use Smoking Status: Current Everyday Smoker Type Used: Cigarettes Recent Infectious Disease Expo: No Have you traveled recently?: No Alcohol Use?: No Past Medical History Surgeries: Yes (RIGHT 2ND FINGER) Orthopedic Respiratory: No Cardiac: Yes Deep Vein Thrombosis Neurological: No Genitourinary: No Gastrointestinal: No Musculoskeletal: No Endocrine: No HEENT: No Cancer: No Psychosocial: No Integumentary: No Review of Systems Time Seen by Provider: 04:35 Sepsis Event Evaluation Height, Weight, BMI Height: '" Weight: lbs. oz. kg; 39.14 BMI Method: Exam Exam Vital Signs Date Time Temp Pulse Resp B/P (MAP) Pulse Ox O2 Delivery O2 Flow Rate FiO2 11/25/20 03:51 36.8 11/25/20 01:00 75 11/25/20 01:00 75 20 127/79 (87) 94 Room Air 11/25/20 00:17 37.0 11/25/20 00:00 81 23 119/85 (98) 94 Room Air 11/25/20 00:00 Room Air 11/24/20 23:00 86 33 136/73 (91) 96 Room Air 11/24/20 22:00 73 23 118/71 (95) 98 Room Air 11/24/20 21:00 78 11 127/90 (105) 95 Room Air 11/24/20 20:00 Room Air 11/24/20 20:00 81 35 132/86 (98) 97 Room Air 11/24/20 19:27 37.0 11/24/20 19:00 76 11/24/20 19:00 76 13 110/70 (83) 93 Room Air 11/24/20 18:00 75 137/72 (93) 97 Room Air 11/24/20 17:00 81 111/66 (81) 97 Room Air 11/24/20 16:22 36.9 75 93 11/24/20 16:15 Room Air 11/24/20 16:00 86 21 112/60 (77) 97 Room Air 11/24/20 15:45 36.9 11/24/20 15:30 75 16 125/71 93 11/24/20 15:15 78 16 109/63 93 11/24/20 15:00 75 21 106/64 (78) 94 Room Air 11/24/20 15:00 75 16 106/64 94 11/24/20 14:45 76 15 117/68 97 11/24/20 14:30 79 16 130/53 97 11/24/20 14:15 73 16 114/54 94 11/24/20 14:00 69 8 123/71 (88) 94 Room Air 11/24/20 14:00 69 16 123/71 94 11/24/20 13:45 76 15 102/98 97 11/24/20 13:36 75 11/24/20 13:30 75 16 120/79 98 11/24/20 13:20 Room Air 11/24/20 13:15 125/74 11/24/20 13:15 75 15 125/74 (91) 98 Room Air 11/24/20 13:15 79 55 120/72 97 Room Air 11/24/20 10:41 36.3 92 18 131/75 (93) 98 I & O 11/25/20 07:00 Intake Total 1060 ml Output Total 200 ml Balance 860 ml Height & Weight Height: '" Weight: lbs. oz. 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); No Sensory Deficit Skin: Normal Color, Warm/Dry, Other (scars on hands from chemical roa per patient) Results Lab Laboratory Tests 11/24/20 10:45 11/25/20 02:50 Assessment/Plan Assessment/Plan Acute CVA- Pt has slight left sided weakness Admitted on 11/24 Did not receive TPA ECHO results pending EICU manage through the weekend CT head negative CTA with concerning finding for acute CVA in right parietal and frontal lobes CTA neck shows patent carotids [facility] contacted and recommended no intervention MRI is pending for this morning 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 SHERIDAN GARCIA DO Nov 25, 2020 04:40
[2020-11-25] MEDS: POTASSIUM CL 10MEQ/50ML IVPB 50 ML IV SCH (05:50)
[2020-11-25] MEDS: MAGNESIUM 1 GM/100 ML IVPB 100 ML IV SCH (05:50)
[2020-11-25] MEDS: KCL 20 MEQ TAB (K-DUR) PO SCH (05:50)
--- NOTE | 2020-11-25 06:00 | Diagnostic Imaging Report ---
INDICATION: Chest pain Portable chest 3:07 AM Heart size and pulmonary vascularity are normal. Lungs are clear. There are no effusions or pneumothoraces. IMPRESSION: Negative chest Dictated by: Dictated on workstation # [id number]
[2020-11-25] MEDS: inSUlin ASPART (NovoLOG) 1 UNIT/0.01 ML (CHARGE PER UNIT) SC SCH ×4 (06:40→21:05)
[2020-11-25] MEDS: ENOXAPARIN 40 MG/0.4 ML (LOVENOX) SYR SC SCH (08:39)
[2020-11-25] MEDS: ASPIRIN E.C. 325 MG (ECOTRIN) TABLET PO SCH (08:39)
[2020-11-25] MEDS: NICOTINE 14 MG (NICODERM) PATCH TD PRN (09:31)
--- NOTE | 2020-11-25 10:26 | Physical Therapy Evaluation ---
PT Evaluation-General Medical Diagnosis Admission Date Nov 24, 2020 at 12:11 Medical Diagnosis: CVA/hyperglycemia Onset Date: Nov 24, 2020 Therapy Diagnosis Therapy Diagnosis: debility/weakness Precautions Precautions/Isolations: Fall Prevention, Standard Precautions Referral Physician: Willi Reason for Referral: Evaluation/Treatment Medical History Pertinent Medical History: DM, Smoking Current History ER with left sided weakness x several hours Reviewed History: Yes Social History Home: Single Level Current Living Status: Spouse Entry Into Home: Stairs With Railing PT Steps Into Home: 4 Prior Prior Level of Function SCALE: Activities may be completed with or without assistive devices. 6-Vkisbuwzvq-debaimh completes the activity by him/herself with no assistance from a helper. 5-Set-up or Clean-up Assistance-helper sets up or cleans up; patient completes activity. [place] assists only prior to or following the activity. 4-Supervision or Touching Assistance-helper provides verbal cues and/or touching/steadying and/or contact guard assistance as patient completes activity. Assistance may be provided throughout the activity or intermittently. 3-Partial/Moderate Assistance-helper does LESS THAN HALF the effort. [place] lifts, holds or supports trunk or limbs, but provides less than half the effort. 2-Substantial/Maximal Assistance-helper does MORE THAN HALF the effort. [place] lifts or holds trunk or limbs and provides more than half the effort. 8-Qgetwksef-acltnc does ALL the effort. Patient does none of the effort to complete the activity. Or, the assistance of 2 or more helpers is required for the patient to complete the activity. If activity was not attempted, code reason: 7-Patient Refused. 9-Not Applicable-not attempted and the patient did not perform the activity before the current illness, exacerbation or injury. 10-Not Attempted due to Environmental Limitations-(lack of equipment, weather restraints, etc.). 88-Not Attempted due to Medical Conditions or Safety Concerns. Bed Mobility: 6 Transfers (B,C,W/C): 6 Gait: 6 Stairs: 6 Wheelchair Mobility: 9 Indoor Mobility (Ambulation): Independent Stairs: Independent Prior Devices Use: None employed PT Evaluation-Current Subjective Patient agrees to PT. No c/o. Objective Patient Orientation: Normal For Age ROM/Strength ROM Lower Extremities bilateral LE WFL Strength Lower Extremities right LE 5/5 grossly all planes/left LE 4/5 grossly all planes Integumentary/Posture Integumentary refer to nursing notes Bowel Incontinence: No Bladder Incontinence: No Posture WFL Neuromuscular (Tone, Coordination, Reflexes) grossly intact (slight left neglect with ambulation with FWW) Sensory Vision: Functional Hearing: Functional Sensation Right Lower Extremit: Intact Sensation Left Lower Extremity: Intact Transfers Roll Left to Right (QC): 6 Sit to Lying (QC): 6 Lying to Sitting/Side of Bed(Q: 6 Sit to Stand (QC): 4 Chair/Lym-kh-Agixz Xfer(QC): 4 SBA with upright mobility Gait Does the Patient Walk?: Yes Mode of Locomotion: Walk Anticipated Mode of Locomotion: Walk Walk 10 feet (QC): 4 Walk 50 ft with 2 Turns(QC): 4 Walk 150 ft (QC): 4 Distance: 300' Gait Assistive Device: FWW Comments/Gait Description functional gait sequence /slight left neglect with negotiating FWW in confined area Wheelchair Training Does the Pt Use a Wheelchair?: No Balance Sitting Static: Normal Sitting Dynamic: Normal Standing Static: Good Standing Dynamic: Good Picking up an Object (QC): 6 Assessment/Needs 55 y.o. male, will be seen short term by skilled PT to address functional strength and mobility to ensure safe return to home with spouse at maximum LOF. Rehab Potential: Fair Post Rehab Potential-Barriers: compliance PT Rf Manager Goals Residential Goals PT Rf Manager Goals Time Frame: Nov 30, 2020 Roll Left & Right (QC): 6 Sit to Lying (QC): 6 Lying-Sitting on Side/Bed(QC): 6 Sit to Stand (QC): 6 Chair/Wwo-ji-Lxvfm Xfer(QC): 6 Toilet Transfer (QC): 6 Does the Patient Walk: Yes Walk 10 feet (QC): 6 Walk 50ft with 2 Turns (QC): 6 Walk 150 ft (QC): 6 1 Step (curb) (QC): 6 4 Steps (QC): 6 PT Plan Problem List Problem List: Safety Treatment/Plan Treatment Plan: Continue Plan of Care Treatment Plan: Education, Functional Activity Piyush, Functional Strength, Gait, Safety, Therapeutic Exercise, Transfers Treatment Duration: Nov 30, 2020 Frequency: 6 times per week Estimated Hrs Per Day: .25 hour per day Patient and/or Family Agrees t: Yes Discharge Recommendations Therapy Discharge Recommendati: Home & Family Time/GCodes Time In: 830 Time Out: 847 Total Billed Treatment Time: 17 Total Billed Treatment 1 visit EVModC 17 min ELIER NEVAREZ PT Nov 25, 2020 10:26
--- NOTE | 2020-11-25 12:25 | Diagnostic Imaging Report ---
PROCEDURE: MR imaging of the brain without contrast. TECHNIQUE: Multiplanar, multisequence MR imaging of the brain was performed without contrast. INDICATION: Left-sided weakness. COMPARISON: CTA head and neck from 11/24/2020. FINDINGS: There is an ovoid focus of restricted diffusion along the medial aspect of the lentiform nucleus that at least partially involves the globus pallidus and is compatible with an acute lacunar infarct. Additionally, there are multiple small foci of restricted diffusion in the right frontal, parietal and occipital lobes involving the cabezas matter and periventricular white matter. On gradient imaging, none of these sites have hypointensities that would suggest hemorrhage. No hydrocephalus. Pituitary and pineal regions are normal. No sagging of the brainstem. Major arterial flow voids are preserved. Orbits are unremarkable. Trace mucosal thickening in the left maxillary sinus. Other paranasal sinuses are clear. Mastoid air cells are clear. IMPRESSION: 1. Acute lacunar infarct in the right basal ganglia along the medial aspect of the lentiform nucleus, at least partially involving the globus pallidus. 2. Additionally, there are multiple small foci of acute infarcts scattered within the right frontal, parietal and occipital cabezas matter and periventricular white matter. 3. This overall distribution would favor an embolic source of infarct. Dictated by: Dictated on workstation # [id number]
[2020-11-25] MEDS ORDERED: IBUP-2473 PO (13:01)
--- NOTE | 2020-11-25 13:27 | Progress Note - Hospitalist ---
Subjective HPI/CC On Admission Date Seen by Provider: Nov 25, 2020 Time Seen by Provider: 08:15 Pt is a 55yoCM with no known past medical history who presented to the ER due to left sided weakness. He defers to his to tell his HPI. He has not seen a doctor for years and his forced him to come today. He developed left sided weakness and was very uncoordinated last night at 8pm. His had him get evaluated in the ER last night as well. His thought it may be his blood sugar and gave him a candy bar. He continued to worsen overnight and was unable to put his own pants on or even walk so brought him back to the ER. 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 His also was not able to aim when urinating and missing the toilet. CT head was done and showed no acute infarct. [facility] stroke neurology was consulted and recommended against TPA due to being outside the window. He had a CTA done as well and this was negative for large vessel occlusion. He is being admitted for further work up and PT/OT. He is somewhat sleepy during exam but states he normally works nights and this is his middle of the night. Subjective/Events-last exam He has no complaints or concerns. He says he is feeling like his normal self. He says he never felt any different. Objective Exam Vital Signs Vital Signs Date Time Temp Pulse Resp B/P (MAP) Pulse Ox O2 Delivery O2 Flow Rate FiO2 11/25/20 12:49 80 11/25/20 12:00 95 Room Air 11/25/20 11:00 22 115/65 (82) 11/25/20 08:28 36.6 Capillary Refill : Less Than 3 Seconds General Appearance: No Apparent Distress, Obese HEENT: PERRL/EOMI, Pharynx Normal Neck: Normal Inspection, Supple Respiratory: Lungs Clear, Normal Breath Sounds, No Respiratory Distress Cardiovascular: Regular Rate, Rhythm, No Edema, No Murmur Gastrointestinal: Normal Bowel Sounds, Non Tender, Soft Extremity: Normal Inspection, Non Tender, No Pedal Edema Neurologic/Psychiatric: Alert, Oriented x3, Other (Flat affect, apathetic) Skin: Normal Color, Warm/Dry Results/Procedures Lab Laboratory Tests 11/25/20 02:50 Patient resulted labs reviewed. Imaging: Reviewed Imaging Report Assessment/Plan Assessment and Plan Assess & Plan/Chief Complaint Acute right-sided lacunar stroke Hyperlipidemia CT head negative CTA neck with patent carotids MRI showed right sided lacunar infarction, also small frontal, parietal, and occipital infarctions PT/OT/ST IRU evaluation Started on ASA Begin Lipitor Newly diagnosed T2DM A1C pending Begin Levemir Begin Metformin Sliding scale insulin Tobacco abuse Recommended cessation, patient unsure of how he will quit but interested DVT prophylaxis: Lovenox Diagnosis/Problems Diagnosis/Problems (1) Right-sided lacunar stroke Status: Acute (2) T2DM (type 2 diabetes mellitus) Status: Acute Qualifiers: Diabetes mellitus skilled nursing insulin use: without skilled nursing use Diabetes mellitus complication status: without complication Qualified Codes: E11.9 - Type 2 diabetes mellitus without complications (3) HLD (hyperlipidemia) Status: Acute (4) Obesity Status: Chronic (5) Tobacco abuse Status: Chronic Clinical Quality Measures Stroke: Date of last known well: Nov 23, 2020 Time of last known well: 20:00 Smoking Cessation Counseling: Counseling-Symptomatic: 3-10 Minutes ADINA FLORES MD Nov 25, 2020 13:27
--- NOTE | 2020-11-25 14:55 | Speech Therapy Progress Note ---
Therapy Progress Note Orders received for bedside dysphagia evaluation. POULTRY CLEANER is not available this date. Spoke with nurse who reported a bedside swallow evaluation had been completed by nursing. Informed nurse that POULTRY CLEANER will see patient 11/26/20 for evaluation. CURT SAMUELS PT Nov 25, 2020 14:55
--- NOTE | 2020-11-25 15:22 | Occupational Therapy Eval ---
OT Evaluation-General/PLF Medical Diagnosis Admission Date Nov 24, 2020 at 12:11 Medical Diagnosis: CVA/hyperglycemia Onset Date: Nov 24, 2020 Therapy Diagnosis Therapy Diagnosis: Decreased ADL status post CVA Precautions Precautions/Isolations: Fall Prevention, Standard Precautions Referral Physician: Willi Referral Reason: Activity Tolerance, Self Care, Evaluation/Treatment, Strengthening/ROM Medical History Pertinent Medical History: DM, Smoking Additional Medical History DM Current History Onset of sx (LUE/ LE weakness with fall due to decreased coordination/ balance)11-24-20 with CVA. No TPA administered as outside window of time. High R parietal lobe Reviewed History: Yes Social History Home: Single Level Current Living Status: Spouse Entry Into Home: Stairs With Railing Steps Into Home: 4 ADL-Prior Level of Function SCALE: Activities may be completed with or without assistive devices. 2-Xaglboeobl-kzrvnzi completes the activity by him/herself with no assistance from a helper. 5-Set-up or Clean-up Assistance-helper sets up or cleans up; patient completes activity. [place] assists only prior to or following the activity. 4-Supervision or Touching Assistance-helper provides verbal cues and/or touching/steadying and/or contact guard assistance as patient completes activity. Assistance may be provided throughout the activity or intermittently. 3-Partial/Moderate Assistance-helper does LESS THAN HALF the effort. [place] lifts, holds or supports trunk or limbs, but provides less than half the effort. 2-Substantial/Maximal Assistance-helper does MORE THAN HALF the effort. [place] lifts or holds trunk or limbs and provides more than half the effort. 9-Jbmxelqyy-aiaukw does ALL the effort. Patient does none of the effort to complete the activity. Or, the assistance of 2 or more helpers is required for the patient to complete the activity. If activity was not attempted, code reason: 7-Patient Refused. 9-Not Applicable-not attempted and the patient did not perform the activity before the current illness, exacerbation or injury. 10-Not Attempted due to Environmental Limitations-(lack of equipment, weather restraints, etc.). 88-Not Attempted due to Medical Conditions or Safety Concerns. ADL PLOF Comments IND without AD. Self Care: Independent Functional Cognition: Independent Occupation: [employer] ([employer]), night work Drive Self: Yes OT Current Status Subjective Pt asleep in bed. Upon OT entry, pt's states "Wake up!" Pt agrees to tx. Denies pain. States fatigue due to "working nights," and disagrees that feels more fatigued than normal. Pt follows commands and direction appropriately. Mental Status/Objective Patient Orientation: Person, Place, Situation, Normal For Age Attachments: Oxygen, Telemetry Current Glasses/Contacts: No Hearing Aids: No Dentures/Partials: No Hand Dominance: Left Upper Extremity ROM Decreased L shoulder flexion. WFL shoulder elevation/ retraction/ depression. Pt's scapula WFL. Elbow/ wrist/ hand WFL ROM. Upper Extremity Coordination Decreased L, increased time needed for finger opposition. RWFL. Upper Extremity Sensation WFL BUE per pt report. States "On and off" paresthesias. Upper Extremity Strength Decreased L shoulder flexion (4/5), though 5/5 elbow flexion. Slight discrepancy L<R digital commentator strength. Decreased proprioception L ADL-Treatment Eating (QC): 5 (per pt, IND with opening items at lunch. Per nursing, better due to finger foods.) Upper Body Dressing (QC): 5 (per clinical judgment, pt able to complete when handed to pt. ) On/Off Footwear (QC): 4 (CGA while EOB due to balance. Pt requires increased trials for L sock don/ doffing due to incoordination of LUE/LLE) Other Treatments Pt bed mob with SBA, increased trials w/out use of bed rail. Reaches EOB and pt denies any more difficulty than normal. Pt completes MMT/ ROM with L shoulder flexion/ abduction noted decrease. WFL distal joints. Pt completes scanning task, WFL peripherals, able to see past L side midline and past L shoulder. Pt's conversion decreased bilaterally. Pt has decreased visual attention. Pt states has been having "Fireflies" and "a block in vision on the L side." Expresses neglect for ~1 mo and "fireflies" for past couple weeks. 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 Pt stands with CGA to walker level. Completes scanning of environment, no dizziness. Pt able to detect correct # of fingers of (placed to L/back side of pt). Expresses his neglect "comes and goes" as well. Pt returns to bed with SBA. States paresthesias "come and go." Pt and educated on purpose of OT and continuation while in hospital. Pt is given yellow therapy sponge and educated on continued strengthening/ purposeful movement of LUE during ADLs (including feeding/ dressing/ tenting). Pt agrees. Pt left in bed with all needs met, call light in reach. Pt's in room upon exit. Education OT Patient Education: Disease process, Exercise program, Home exercise program, Instructions to caregiver, Purpose of tx/functional activities, Safety issues, Transfer techniques Teaching Recipient: Patient Teaching Methods: Demonstration, Discussion Response to Teaching: Verbalize Understanding, Return Demonstration, Reinforcement Needed OT Case Managers Goals Case Managers Goals Time Frame: Dec 02, 2020 Eating (QC): 6 Oral Hygiene (QC): 6 Toileting Hygiene (QC): 6 Shower/Bathe Self (QC): 6 Upper Body Dressing (QC): 6 Lower Body Dressing (QC): 6 On/Off Footwear (QC): 6 Additional Goals: 1-Demonstrate ADL Tasks, 2-Verbalize Understanding, 3-ImproveStrength/Piyush 1=Demonstrate adherence to instructed precautions during ADL tasks. 2=Patient will verbalize/demonstrate understanding of assistive devices/modifications for ADL. 3=Patient will improve strength/tolerance for activity to enable patient to perform ADL's. OT Education/Plan Problem List/Assessment Assessment: Decreased Activ Tolerance, Decreased UE Strength, Dependent Transfers, Impaired Bed Mobility, Impaired Coordination, Impaired Funct Balance, Impaired I ADL's, Impaired Self-Care Skills, Restricted Funct UE ROM, Visual- Perceptual Deficit Discharge Recommendations Plan/Recommendations: Continue POC Therapy Discharge Recommendati: Home & Family, Post Acute OT Treatment Plan/Plan of Care Treatment,Training & Education: Yes Patient would benefit from OT for education, treatment and training to promote independence in ADL's, mobility, safety and/or upper extremity function for ADL's. Plan of Care: ADL Retraining, Functional Mobility, UE Funct Exercise/Act, UE Neuromus Re-Ed/Coord, Visual/Perceptual Retrain Treatment Duration: Dec 02, 2020 Frequency: 5 times per week Estimated Hrs Per Day: .25 hour per day Agreement: Yes Rehab Potential: Fair Time/GCodes Start Time: 14:58 Stop Time: 15:13 Total Time Billed (hr/min): 15 Billed Treatment Time JYOTSNA De La Rosa (15) SP ZAMORA OTR Nov 25, 2020 15:22
[2020-11-25] MEDS ORDERED: metFORMIN 500 MG (GLUCOPHAGE) TAB PO NR (17:00)
[2020-11-26 02:55] LABS: BASOPHILS % (AUTO) 0 % (0-10); EOSINOPHILS # (AUTO) 0.1 10^3/uL (0.0-0.3); EOSINOPHILS % (AUTO) 1 % (0-10); HEMATOCRIT 52 % (40-54); HEMOGLOBIN 16.6 g/dL (13.3-17.7); LYMPHOCYTES # (AUTO) 2.4 10^3/uL (1.0-4.0); LYMPHOCYTES % (AUTO) 26 % (12-44); MEAN CORPUSCULAR HEMOGLOBIN 28 pg (25-34); MEAN CORPUSCULAR HGB CONC 32 g/dL (32-36); MEAN CORPUSCULAR VOLUME 88 fL (80-99); MEAN PLATELET VOLUME 10.2 fL (9.0-12.2); MONOCYTES # (AUTO) 0.7 10^3/uL (0.0-1.0); MONOCYTES % (AUTO) 8 % (0-12); NEUTROPHILS % (AUTO) 65 % (42-75); PLATELET COUNT 241 10^3/uL (130-400); WHITE BLOOD COUNT 9.1 10^3/uL (4.3-11.0)
[2020-11-26 03:19] LABS: CHLORIDE 101 MMOL/L (98-107); POTASSIUM 3.9 MMOL/L (3.6-5.0); SODIUM 133 MMOL/L (135-145)
[2020-11-26 03:20] LABS: CALCIUM 8.8 MG/DL (8.5-10.1); GLUCOSE 178 MG/DL (70-105)
[2020-11-26 03:22] LABS: CARBON DIOXIDE 22 MMOL/L (21-32)
[2020-11-26 03:24] LABS: CREATININE SERUM 0.82 MG/DL (0.60-1.30); GFR ESTIMATED > 60
[2020-11-26 03:25] LABS: BUN/CREATININE RATIO 21
[2020-11-26 03:27] LABS: MAGNESIUM 2.1 MG/DL (1.6-2.4)
[2020-11-26] MEDS: POTASSIUM CL 10MEQ/50ML IVPB 50 ML IV SCH (06:19)
[2020-11-26] MEDS: KCL 20 MEQ TAB (K-DUR) PO SCH (06:22)
[2020-11-26] MEDS: MAGNESIUM 1 GM/100 ML IVPB 100 ML IV SCH (06:22)
[2020-11-26] MEDS: inSUlin ASPART (NovoLOG) 1 UNIT/0.01 ML (CHARGE PER UNIT) SC SCH ×3 (06:22→11:27)
[2020-11-26] MEDS: CATHETER FLUSH 10 ML SYR IV SCH ×2 (06:33→15:35)
[2020-11-26] MEDS ORDERED: metFORMIN 500 MG (GLUCOPHAGE) TAB PO SCH (07:00)
--- NOTE | 2020-11-26 08:18 | Diagnostic Imaging Report ---
INDICATION: Hyperglycemia. COMPARISON: 11/25/2020 FINDINGS: Single frontal view of the chest demonstrates normal heart size and pulmonary vascularity. The lungs are well aerated and clear. No large pleural effusion or pneumothorax is seen. The visualized osseous structures show no acute abnormalities. IMPRESSION: 1. No acute cardiopulmonary process. Dictated by: Dictated on workstation # [id number]
[2020-11-26] MEDS ORDERED: NICOTINE PATCH REMOVAL TP SCH (09:00)
[2020-11-26] MEDS: ENOXAPARIN 40 MG/0.4 ML (LOVENOX) SYR SC SCH (09:10)
[2020-11-26] MEDS: ASPIRIN E.C. 325 MG (ECOTRIN) TABLET PO SCH (09:10)
[2020-11-26] MEDS: NICOTINE 14 MG (NICODERM) PATCH TD PRN (09:11)
--- NOTE | 2020-11-26 09:57 | Physical Therapy Daily Note ---
PT Daily Note-Current Subjective Patient states, "I just want to go home." Spouse present. Mental Status Patient Orientation: Normal For Age Transfers SCALE: Activities may be completed with or without assistive devices. 4-Yiynrpdrhi-rvlunbe completes the activity by him/herself with no assistance from a helper. 5-Set-up or Clean-up Assistance-helper sets up or cleans up; patient completes activity. [place] assists only prior to or following the activity. 4-Supervision or Touching Assistance-helper provides verbal cues and/or t ouching/steadying and/or contact guard assistance as patient completes activity. Assistance may be provided throughout the activity or intermittently. 3-Partial/Moderate Assistance-helper does LESS THAN HALF the effort. [place] lifts, holds or supports trunk or limbs, but provides less than half the effort. 2-Substantial/Maximal Assistance-helper does MORE THAN HALF the effort. [place] lifts or holds trunk or limbs and provides more than half the effort. 9-Ukwxondqn-svtcrp does ALL the effort. Patient does none of the effort to complete the activity. Or, the assistance of 2 or more helpers is required for the patient to complete the activity. If activity was not attempted, code reason: 7-Patient Refused. 9-Not Applicable-not attempted and the patient did not perform the activity before the current illness, exacerbation or injury. 10-Not Attempted due to Environmental Limitations-(lack of equipment, weather restraints, etc.). 88-Not Attempted due to Medical Conditions or Safety Concerns. Roll Left & Right (QC): 6 Lying to Sitting/Side of Bed(Q: 6 Sit to Stand (QC): 6 Chair/Evf-be-Irrns Xfer(QC): 6 Gait Training Does the Patient Walk?: Yes Distance: 800' Walk 10 feet (QC): 6 Walk 50 ft with 2 Turns(QC): 6 Walk 150 ft (QC): 6 Gait Assistive Device: None displays slight left LE lag with increased distance and fatigue with self correct and no LOB Exercises Seated Therapy Exercises: Ankle pumps, Long arc quads Seated Reps: 15 Assessment Patient does have slight left LE lag when fatigued with self correct. Patient remains up in recliner with needs met. From a PT standpoint, patient would benefit from outpatient PT to address left side deficits. PT Halfway Goals Halfway Goals PT Halfway Goals Time Frame: Nov 30, 2020 Roll Left & Right (QC): 6 Sit to Lying (QC): 6 Lying-Sitting on Side/Bed(QC): 6 Sit to Stand (QC): 6 Chair/Xlr-ws-[place] Xfer(QC): 6 Toilet Transfer (QC): 6 Does the Patient Walk: Yes Walk 10 feet (QC): 6 Walk 50ft with 2 Turns (QC): 6 Walk 150 ft (QC): 6 1 Step (curb) (QC): 6 4 Steps (QC): 6 PT Plan Treatment/Plan Treatment Plan: Continue Plan of Care Treatment Plan: Education, Functional Activity Piyush, Functional Strength, Gait, Safety, Therapeutic Exercise, Transfers Treatment Duration: Nov 30, 2020 Frequency: 6 times per week Estimated Hrs Per Day: .25 hour per day Patient and/or Family Agrees t: Yes Time/GCodes Time In: 831 Time Out: 843 Total Billed Treatment Time: 12 Total Billed Treatment 1 visit FA 12 min ELIER NEVAREZ PT Nov 26, 2020 09:57
[2020-11-26] MEDS ORDERED: inSUlin ASPART (NovoLOG) 1 UNIT/0.01 ML (CHARGE PER UNIT) SC SCH (12:00)
--- NOTE | 2020-11-26 12:00 | Speech Therapy Progress Note ---
Therapy Progress Note Patient is currently on a regular diet consistency which he is tolerating well. Discharge ST orders for BDE. YASIR LEONARDO Nov 26, 2020 12:00
[2020-11-26] MEDS ORDERED: ATOR80TA76 PO (12:22)
[2020-11-26] MEDS ORDERED: METF-397 PO (12:22)
[2020-11-26] MEDS ORDERED: ASPI325T32 PO (12:22)
[2020-11-26] MEDS ORDERED: INSU100I10 SQ (12:22)
--- NOTE | 2020-11-26 13:10 | Consultation-Cardiology ---
HPI-Cardiology Cardiology Consultation Date of Consultation 11/26/20 Date of Admission Time Seen by Provider: 13:05 Indication: Acute CVA HPI 55-year-old gentleman with past medical history of hypertension hyperlipidemia, recently diagnosed diabetes, admitted with acute CVA and weakness on his right side, the neurology stroke team at [facility] advised against giving him TPA. Had an MRI of the head which showed multiple small foci of acute infarct, reporting improvement of his symptoms. No chest pain. No palpitation or shortness of breath. Home Medications & Allergies Allergies: Coded Allergies: No Known Drug Allergies (Unverified , 11/23/20) Home Medication List Reviewed: Yes GKG-Opjwkb-Zkvicm Hx Patient Social History Marital Status: Employed/Student: employed Recreational Drug Use: No Smoking Status: Current Everyday Smoker Cigaretts per day: 20 Type Used: Cigarettes Have you traveled recently?: No Alcohol Use?: No Past Medical History Discussed below Family Medical History Family Medical Hx Non contributory Review of Systems-General Review of Systems Constitutional: see HPI EENTM: see HPI, no symptoms reported Respiratory: no symptoms reported, see HPI Cardiovascular: no symptoms reported, see HPI Gastrointestinal: no symptoms reported, see HPI Genitourinary: no symptoms reported, see HPI Musculoskeletal: no symptoms reported, see HPI Skin: no symptoms reported, see HPI Psychiatric/Neurological: See HPI; Denies Numbness, Denies Paresthesia Reviewed Test Results Reviewed Test Results Lab Laboratory Tests Test 11/25/20 15:33 11/25/20 20:57 11/26/20 02:22 11/26/20 09:12 Range/Units Glucometer 320 H 256 H 235 H 70-110 MG/DL White Blood Count 9.1 4.3-11.0 10^3/uL Red Blood Count 5.84 H 4.30-5.52 10^6/uL Hemoglobin 16.6 13.3-17.7 g/dL Hematocrit 52 40-54 % Mean Corpuscular Volume 88 80-99 fL Mean Corpuscular Hemoglobin 28 25-34 pg Mean Corpuscular Hemoglobin Concent 32 32-36 g/dL Red Cell Distribution Width 13.3 10.0-14.5 % Platelet Count 241 130-400 10^3/uL Mean Platelet Volume 10.2 9.0-12.2 fL Immature Granulocyte % (Auto) 1 % Neutrophils (%) (Auto) 65 42-75 % Lymphocytes (%) (Auto) 26 12-44 % Monocytes (%) (Auto) 8 0-12 % Eosinophils (%) (Auto) 1 0-10 % Basophils (%) (Auto) 0 0-10 % Neutrophils # (Auto) 6.0 1.8-7.8 10^3/uL Lymphocytes # (Auto) 2.4 1.0-4.0 10^3/uL Monocytes # (Auto) 0.7 0.0-1.0 10^3/uL Eosinophils # (Auto) 0.1 0.0-0.3 10^3/uL Basophils # (Auto) 0.0 0.0-0.1 10^3/uL Immature Granulocyte # (Auto) 0.1 0.0-0.1 10^3/uL Sodium Level 133 L 135-145 MMOL/L Potassium Level 3.9 3.6-5.0 MMOL/L Chloride Level 101 98-107 MMOL/L Carbon Dioxide Level 22 21-32 MMOL/L Anion Gap 10 5-14 MMOL/L Blood Urea Nitrogen 17 7-18 MG/DL Creatinine 0.82 0.60-1.30 MG/DL Estimat Glomerular Filtration Rate > 60 BUN/Creatinine Ratio 21 Glucose Level 178 H 70-105 MG/DL Calcium Level 8.8 8.5-10.1 MG/DL Phosphorus Level 3.0 2.3-4.7 MG/DL Magnesium Level 2.1 1.6-2.4 MG/DL Test 11/26/20 10:50 Range/Units Glucometer 182 H 70-110 MG/DL Physical Exam Physical Exam Vital Signs Vital Signs - First Documented 11/24/20 10:41 Temp 36.3 Pulse 92 Resp 18 B/P (MAP) 131/75 (93) Pulse Ox 98 Capillary Refill : Less Than 3 Seconds Height, Weight, BMI Height: '" Weight: lbs. oz. kg; 39.14 BMI Method: General Appearance: No Apparent Distress, WD/WN, Obese Eyes: Bilateral Eye Normal Inspection, Bilateral Eye PERRL, Bilateral Eye EOMI HEENT: PERRL/EOMI, Moist Mucous Membranes; No Scleral Icterus (L), No Scleral Icterus (R) Neck: Normal Inspection, Supple; No JVD Respiratory: Lungs Clear, No Accessory Muscle Use, No Respiratory Distress Cardiovascular: Regular Rate, Rhythm, No Edema, No Murmur, Normal Peripheral Pulses Gastrointestinal: Normal Bowel Sounds, Non Tender, Soft Back: Normal Inspection, No CVA Tenderness, No Vertebral Tenderness Extremity: No Calf Tenderness, No Pedal Edema Neurologic/Psychiatric: Alert, Oriented x3; No Aphasia, No Facial Droop; Motor Weakness (left leg weakness 3/5, 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 Appear to be suggestive of showering embolization involving the right side lacunar infarct and small frontal, parietal and occipital infarction. Currently started on aspirin and Plavix, planning to proceed with loop monitor implantation with close monitoring Echocardiogram showed normal LV size and function, EF 65%, grade 2 diastolic dysfunction, mildly dilated left atrium, no signs of shunt was noted. Hyperlipidemia, starting on Lipitor and monitor lipids Diabetes mellitus, type II, diagnosed recently. Started on Metformin managed by primary care team Tobaccoism, educated and instructed on smoking cessation. BMI 35, obesity, snoring, increased risk of sleep apnea, consider sleep study as an outpatient Clinical Quality Measures Stroke: Date of last known well: Nov 23, 2020 Time of last known well: 20:00 Smoking Cessation Counseling: Counseling-Symptomatic: 3-10 Minutes SYLVESTER YANEZ MD Nov 26, 2020 13:10
--- NOTE | 2020-11-26 14:15 | Occ Therapy Progress Note ---
Therapy Progress Note Pt. up in chair. Spouse present. Pt. verbalizes that he thinks he is going home today. OT talks with him and spouse regarding any current needs that they may have. Both verbalize that pt. is doing well, and feels he is at baseline. Pt. reports that he seems to have no residual strength issues or deficits, and that he is able to don LE clothing, take self to bathroom, etc. Pt. does verbalize, (with prompting), that he still has "floaters" at times, and occasi onally he will have a "blindspot" on the left side. He states that this doesn't last very long, and that this has been happening for at least 6 months. OT encourages pt. to follow up with neuro opthamologist, and if not, then eye physician in [facility] that can address these issues. Pt. and spouse verbalize understanding, and spouse writes down this information. Otherwise, pt. reports no other issues with vision. Pt. up in chair awaiting lunch tray. No further OT warranted at this time. [id number] 1, visit x 10minutes Discharge OT KIMBERLY HENDRICKS OT Nov 26, 2020 14:15
== END 2020-11-26 15:30 | disposition home or self-care (01) | DRG 65 ==
LOC: EDUNIT# 10:41 → ER 10:42 → ICU 12:11
PROVIDERS: ADMIT Family Medicine; ATTEND Internal Medicine
DX: I63.40 Cerebral infarction due to embolism of unspecified cerebral artery (principal); G81.94 Hemiplegia, unspecified affecting left nondominant side; I10 Essential (primary) hypertension; R29.705 NIHSS score 5; E11.65 Type 2 diabetes mellitus with hyperglycemia; F17.210 Nicotine dependence, cigarettes, uncomplicated; E78.5 Hyperlipidemia, unspecified; E66.9 Obesity, unspecified; Z68.35 Body mass index [BMI] 35.0-35.9, adult; Z86.718 Personal history of other venous thrombosis and embolism
CPT/HCPCS: 36415; 70450; 70496; 70498; 70551; 71045; 80048; 80061; 82962; 83036; 83735; 84100; 85025; 85610; 85730; 87081; 93005; 93306; 94664

== ENCOUNTER → 2020-12-02 | Day surgery (SDC) | payer OTHER ==
[~2020-12-02] VITALS: Ht 193 cm; Wt 134.5 kg
[~2020-12-02] MED LIST: ASPI325T32 PO; ATOR80TA76 PO; IBUP-2473 PO; INSU100I10 SQ; LIDOCAINE 1% INJ 20 ML 20 ML VIAL INJ ONE; LIDOCAINE 1% INJ 20 ML 20 ML VIAL ONE; METF-397 PO
[2020-12-02 11:48] VITALS: BP 130/71
--- NOTE | 2020-12-02 11:54 | Implantation of Loop Monitor ---
Implant of Loop Monitior IMPLANTATION OF LOOP MONITOR REPORT DATE OF PROCEDURE: 12/02/20 PREOP DIAGNOSIS: Cryptogenic stroke POSTOP DIAGNOSIS: Cryptogenic stroke PROCEDURE DETAILS: The patient is a 55 male with history of cryptogenic stroke requiring long-term surveillance. Therefore implantable loop recorder was discussed and agreed with the patient. Informed consent was taken. All risks and complications were discussed at length. The patient was draped and prepped in the usual sterile fashion. Local anesthesia was lidocaine, which was given in the substernal area close to the 4th intercostal space. Loop monitor [employer] with serial number [id number] was implanted according to the protocol. Steri-Strips were placed at the end of the procedure. There were no complications and the patient tolerated the procedure well. ANESTHESIA: Local anesthesia with lidocaine. COMPLICATIONS: None CONTRAST/FLUOROSCOPY: None CONCLUSION: Successful implantation of loop monitor with no complication SYLVESTER YANEZ MD Dec 02, 2020 11:54
[2020-12-02 11:58] VITALS: BP 131/80
== END ==
LOC: CATH 11:08
PROVIDERS: ATTEND Internal Medicine Cardiovascular Disease
DX: I63.9 Cerebral infarction, unspecified (principal); I10 Essential (primary) hypertension; E78.5 Hyperlipidemia, unspecified; E66.9 Obesity, unspecified; E11.9 Type 2 diabetes mellitus without complications; F17.210 Nicotine dependence, cigarettes, uncomplicated; Z68.35 Body mass index [BMI] 35.0-35.9, adult
CPT/HCPCS: 33285; C1764